=== PATIENT | female | born 1945 | race Two or more races ===

== ENCOUNTER 2019-07-04 09:43 | Outpatient (CLI) | payer OTHER | END 2019-07-04 09:46 | disposition home or self-care (01) | LOC: RAD 09:43 | DX: M25.572 Pain in left ankle and joints of left foot (principal); M79.672 Pain in left foot ==

== ENCOUNTER 2019-07-29 08:54 | Outpatient (CLI) | payer OTHER | END 2019-07-29 09:15 | disposition home or self-care (01) | LOC: LAB 08:54 | DX: E88.89 Other specified metabolic disorders (principal); E55.9 Vitamin D deficiency, unspecified; M85.88 Other specified disorders of bone density and structure, other site; E21.2 Other hyperparathyroidism; M81.8 Other osteoporosis without current pathological fracture; E56.1 Deficiency of vitamin K; E11.69 Type 2 diabetes mellitus with other specified complication; I11.9 Hypertensive heart disease without heart failure; E66.8 Other obesity ==

== ENCOUNTER 2021-01-27 12:56 | Outpatient (CLI) | payer OTHER | END 2021-01-27 13:05 | disposition home or self-care (01) | LOC: RAD 12:56 | PROVIDERS: ATTEND Orthopaedic Surgery Sports Medicine | DX: M17.12 Unilateral primary osteoarthritis, left knee (principal); M25.561 Pain in right knee; M25.562 Pain in left knee ==

== ENCOUNTER 2022-10-12 15:07 | Outpatient (CLI) | payer OTHER | END 2022-10-12 15:11 | disposition home or self-care (01) | LOC: RAD 15:07 | PROVIDERS: ATTEND Orthopaedic Surgery | DX: M25.561 Pain in right knee (principal); M25.562 Pain in left knee ==

== ENCOUNTER 2023-08-28 09:22 | Outpatient (CLI) | payer OTHER ==
[2023-08-28 11:20] LABS: HEMOGLOBIN 11.8 g/dL (12.0-15.00); MEAN CORPUSCULAR HEMOGLOBIN 29.3 pg (27.00-32.0); MEAN CORPUSCULAR HGB CONC 32.9 g/dl (32.0-36.0); PLATELET COUNT 199 K/uL (150-450); RED BLOOD COUNT 4.05 M/uL (4.00-6.00)
[2023-08-28 11:31] LABS: ALBUMIN 3.9 gm/dL (3.4-5.0); BILIRUBIN TOTAL 0.68 mg/dL (0.3-1.2); CALCIUM 9.2 mg/dL (8.5-10.1); CREATININE SERUM 0.93 mg/dL (0.55-1.02); GFR 58.31; POTASSIUM 4.32 mEq/L (3.5-5.1); TOTAL PROTEIN 6.9 gm/dL (6.4-8.2)
[2023-08-28 11:38] LABS: COL EPI 103 SECONDS (82-175)
[2023-08-28 11:39] LABS: PH,URINE 6.5 (5.0-8.0); URINE APPEARANCE Clear; URINE BILIRRUBIN Negative (NEGATIVE); URINE BLOOD Negative; URINE COLOR Yellow; URINE GLUCOSE Negative (NEGATIVE); URINE LEUKOCYTE Trace; URINE NITRATE Negative; URINE PROTEIN Negative (NEGATIVE); URINE UROBILINOGEN 0.2 E.U./dl
[2023-08-28 11:40] LABS: URINE BACTERIA 7.5 uL (0.0-1933); URINE RBC 2.8 uL (0.0-20.8); URINE WBC 4.1 uL (0.0-23.2)
[2023-08-28 11:42] LABS: CREATININE SERUM 0.96 mg/dL (0.55-1.02); GFR 56.21; POTASSIUM 4.4 mEq/L (3.5-5.1); T4 TOTAL 9.7 UG/DL (4.8-13.9); TSH 1.63 uIU/mL (0.358-3.74)
[2023-08-28 11:45] LABS: INR 0.97; PARTIAL THROMBOPLASTIN TIME 28.3 SECONDS (22.0-34.0)
[2023-08-28 11:54] LABS: PROTHROMBIN TIME 10.2 SECONDS (9.0-11.5)
== END 2023-08-28 09:24 | disposition home or self-care (01) ==
LOC: RAD 09:22
PROVIDERS: ATTEND Orthopaedic Surgery
DX: D64.9 Anemia, unspecified (principal); E88.89 Other specified metabolic disorders; D68.8 Other specified coagulation defects; N39.0 Urinary tract infection, site not specified; Z22.322 Carrier or suspected carrier of Methicillin resistant Staphylococcus aureus; E11.9 Type 2 diabetes mellitus without complications; Z76.89 Persons encountering health services in other specified circumstances; I10 Essential (primary) hypertension; E03.9 Hypothyroidism, unspecified; R80.9 Proteinuria, unspecified

== ENCOUNTER 2024-02-19 09:01 | Outpatient (CLI) | payer OTHER ==
[2024-02-19 10:05] LABS: PH,URINE 6.5 (5.0-8.0); URINE APPEARANCE Clear; URINE BILIRRUBIN Negative (NEGATIVE); URINE BLOOD Negative; URINE COLOR Yellow; URINE GLUCOSE Negative (NEGATIVE); URINE KETONE Negative (NEGATIVE); URINE LEUKOCYTE Negative; URINE NITRATE Negative; URINE PROTEIN Negative (NEGATIVE); URINE UROBILINOGEN 0.2 E.U./dl
[2024-02-19 10:09] LABS: URINE RBC 5.4 uL (0.0-20.8); URINE WBC 4.2 uL (0.0-23.2)
[2024-02-19 10:34] LABS: URINE BACTERIA 0 uL (0.0-1933)
[2024-02-19 11:09] LABS: HEMATOCRIT 35.2 % (36.0-45.00); HEMOGLOBIN 11.7 g/dL (12.0-15.00); MEAN CELL VOLUME 91.4 fL (80.00-100.00); MEAN CORPUSCULAR HEMOGLOBIN 30.5 pg (27.00-32.0); MEAN CORPUSCULAR HGB CONC 33.3 g/dl (32.0-36.0); PLATELET COUNT 217 K/uL (150-450); RED BLOOD COUNT 3.85 M/uL (4.00-6.00); RED CELL DISTRIBUTION WIDTH 15.4 % (11.5-14.5)
[2024-02-19 11:25] LABS: COL EPI 122 SECONDS (82-175)
[2024-02-19 11:30] LABS: INR 0.97; PARTIAL THROMBOPLASTIN TIME 28.5 SECONDS (22.0-34.0); PROTHROMBIN TIME 10.6 SECONDS (9.0-11.5)
[2024-02-19 11:54] LABS: BILIRUBIN TOTAL 0.6 mg/dL (0.3-1.2); CALCIUM 9.3 mg/dL (8.5-10.1); CREATININE SERUM 0.95 mg/dL (0.55-1.02); GFR 56.74; POTASSIUM 3.98 mEq/L (3.5-5.1)
== END 2024-02-19 09:02 | disposition home or self-care (01) ==
LOC: LAB 09:01
PROVIDERS: ATTEND Orthopaedic Surgery
DX: N39.0 Urinary tract infection, site not specified (principal); Z22.322 Carrier or suspected carrier of Methicillin resistant Staphylococcus aureus; D64.9 Anemia, unspecified; E88.89 Other specified metabolic disorders; D68.8 Other specified coagulation defects; E11.9 Type 2 diabetes mellitus without complications; I10 Essential (primary) hypertension; Z76.89 Persons encountering health services in other specified circumstances

== ENCOUNTER 2024-02-27 14:57 | Inpatient (IN) | payer OTHER ==
[~2024-02-27] VITALS: Ht 152.4 cm; Wt 83.0 kg
[2024-02-27] MEDS ORDERED: TRULICITY1.5 MG/0.5 (15:30)
[2024-02-27] MEDS ORDERED: SYNTHROID75 MCG PO (15:30)
[2024-02-27] MEDS ORDERED: DIOVAN320 MG PO (15:30)
[2024-02-27] MEDS ORDERED: BISOPROLOL-HCT1 EAC1 PO (15:30)
[2024-02-27 15:31] VITALS: BP 143/67
[2024-02-27 17:23] LABS: RH POSITIVE
[2024-03-10] MEDS ORDERED: XARELTO10 M1 (15:50)
[2024-03-10] MEDS ORDERED: NORVASC2.5 MG (15:50)
[2024-03-10] MEDS ORDERED: METFORMIN HCL500 M4 (15:51)
[2024-03-10] MEDS ORDERED: VANCOMYCIN HCL IR ONE (16:00)
[2024-03-10] MEDS ORDERED: SODIUM CHLORIDE 0.9% IR ONE (16:00)
[2024-03-10] MEDS ORDERED: POLYMYXIN B SULFATE 500,000 U VIAL IR ONE (16:00)
[2024-03-10] MEDS ORDERED: CEFAZOLIN SODIUM 2,000 MG in 0.9 % SODIUM CHLORIDE 100 ML IV ONE (16:00)
[2024-03-10] MEDS ORDERED: TRANEXAMIC ACID 1,000 MG in 0.9 % SODIUM CHLORIDE 100 ML IV ONE (16:00)
[2024-03-10] MEDS ORDERED: MORPHINE SULFATE 4 MG/ML CARTRIDGE IV ONE (16:00)
[2024-03-10] MEDS ORDERED: CEFAZOLIN SODIUM 1,000 MG VIAL IV SCH (20:42)
[2024-03-10] MEDS ORDERED: PANTOPRAZOLE SODIUM 40 MG TABLET.DR PO SCH (20:44)
[2024-03-10] MEDS ORDERED: MEPERIDINE HCL/PF 50 MG/ML VIAL IM PRN (20:45)
[2024-03-10] MEDS ORDERED: ONDANSETRON HCL 2 MG/ML VIAL IV PRN (20:45)
[2024-03-10] MEDS ORDERED: SODIUM CHLORIDE 0.45 % 1,000 ML IV SCH (20:45)
[2024-03-10] MEDS ORDERED: PROMETHAZINE HCL 50 MG/ML AMPUL IM PRN (20:45)
[2024-03-10] MEDS ORDERED: ONDANSETRON 4 MG TAB.RAPDIS PO PRN (20:45)
[2024-03-10] MEDS ORDERED: TRAMADOL HCL 50 MG TABLET PO PRN (20:45)
[2024-03-10] MEDS ORDERED: ACETAMINOPHEN 325 MG TABLET PO SCH (21:00)
[2024-03-10 21:52] VITALS: BP 143/67; O2SAT 98
[2024-03-11 00:43] VITALS: BP 123/74; O2SAT 99
[2024-03-11 06:25] LABS: MEAN CELL VOLUME 91.4 fL (80.00-100.00); MEAN CORPUSCULAR HGB CONC 34.5 g/dl (32.0-36.0); PLATELET COUNT 202 K/uL (150-450); RED BLOOD COUNT 2.59 M/uL (4.00-6.00); RED CELL DISTRIBUTION WIDTH 16.1 % (11.5-14.5)
[2024-03-11 06:46] LABS: HEMATOCRIT 23.6 % (36.0-45.00); HEMOGLOBIN 8.1 g/dL (12.0-15.00); MEAN CORPUSCULAR HEMOGLOBIN 31.2 pg (27.00-32.0)
[2024-03-11 08:10] VITALS: BP 108/68; O2SAT 94
[2024-03-11] MEDS ORDERED: RIVAROXABAN 10 MG TAB PO SCH (09:00)
[2024-03-11] MEDS ORDERED: CEFAZOLIN SODIUM 1,000 MG VIAL IV SCH (13:00)
[2024-03-11] MEDS ORDERED: SODIUM CHLORIDE 0.9% IR ONE (13:45)
[2024-03-11] MEDS ORDERED: MORPHINE SULFATE 4 MG/ML VIAL IV ONE (13:45)
[2024-03-11] MEDS ORDERED: VANCOMYCIN HCL IR ONE (13:45)
[2024-03-11 16:20] VITALS: BP 121/77; O2SAT 98
[2024-03-12] VITALS: BP 118/72; O2SAT 95
[2024-03-12 06:11] LABS: HEMATOCRIT 27.5 % (36.0-45.00); HEMOGLOBIN 9.4 g/dL (12.0-15.00); MEAN CELL VOLUME 91.8 fL (80.00-100.00); MEAN CORPUSCULAR HEMOGLOBIN 31.4 pg (27.00-32.0); MEAN CORPUSCULAR HGB CONC 34.2 g/dl (32.0-36.0); PLATELET COUNT 162 K/uL (150-450); RED CELL DISTRIBUTION WIDTH 15.7 % (11.5-14.5)
[2024-03-12 10:00] VITALS: BP 99/76; O2SAT 95
[2024-03-12 17:00] VITALS: BP 131/79; O2SAT 96
[2024-03-13] VITALS: BP 108/53; O2SAT 95
[2024-03-13 06:39] LABS: MEAN CELL VOLUME 91.8 fL (80.00-100.00); MEAN CORPUSCULAR HGB CONC 34.3 g/dl (32.0-36.0); PLATELET COUNT 161 K/uL (150-450); RED BLOOD COUNT 2.83 M/uL (4.00-6.00); RED CELL DISTRIBUTION WIDTH 15.9 % (11.5-14.5)
[2024-03-13 06:54] LABS: MEAN CORPUSCULAR HEMOGLOBIN 31.4 pg (27.00-32.0)
[2024-03-13 06:56] LABS: HEMOGLOBIN 8.9 g/dL (12.0-15.00)
[2024-03-13 10:00] VITALS: BP 136/63; O2SAT 100
== END 2024-03-13 15:11 | disposition home or self-care (01) | DRG 940 ==
LOC: SURG 03-09 07:00 → O/R 03-10 10:50 → SURH 03-10 10:50
PROVIDERS: ADMIT Orthopaedic Surgery; ATTEND Orthopaedic Surgery
PROC: 0QUD0JZ Supplement Right Patella with Synthetic Substitute, Open Approach (ICD-10-PCS; 2024-03-10)
PROC: 0SWC0JZ Revision of Synthetic Substitute in Right Knee Joint, Open Approach (ICD-10-PCS; 2024-03-10)
PROC: 0SRC0J9 Replacement of Right Knee Joint with Synthetic Substitute, Cemented, Open Approach (ICD-10-PCS; principal; 2024-03-10 07:00)
DX: T84.022D Instability of internal right knee prosthesis, subsequent encounter (principal); T84.84XA Pain due to internal orthopedic prosthetic devices, implants and grafts, initial encounter

== ENCOUNTER 2024-04-10 09:32 | Outpatient (CLI) | payer OTHER ==
[~2024-04-10 09:32] MED LIST: BISOPROLOL-HCT1 EAC1 PO; DIOVAN320 MG PO; METFORMIN HCL500 M4; NORVASC2.5 MG; SYNTHROID75 MCG PO; TRULICITY1.5 MG/0.5; XARELTO10 M1
== END 2024-04-10 09:38 | disposition home or self-care (01) ==
LOC: RAD 09:32
PROVIDERS: ATTEND Orthopaedic Surgery
DX: Z96.651 Presence of right artificial knee joint (principal)